=== PATIENT | female | born 1985 | race Caucasian/White ===

== ENCOUNTER 2021-12-19 21:05 | Emergency (ER) | payer OTHER ==
[~2021-12-19 21:05] MED LIST: MEDROL 4MG DOSEP4 MG PO; VENTOLIN HFA IN18 GM INH
[2021-12-20 00:18] LABS: BILIRUBIN NEGATIVE (NEGATIVE); BLOOD 3+ Ery/uL (NEGATIVE); CLARITY CLEAR (CLEAR); COLOR YELLOW (YELLOW); GLUCOSE (U) NORMAL (NORMAL); LEUKOCYTES NEGATIVE Leu/uL (NEGATIVE); NITRITE POSITIVE (NEGATIVE); PROTEIN NEGATIVE (NEGATIVE); SPECIFIC GRAVITY >=1.030 (1.001-1.030); UROBILINOGEN 0.2 mg/dL (0.2-1.0)
[2021-12-20 00:26] LABS: BACTERIA 4+
[2021-12-20 01:22] LABS: BUN/CREAT RATIO (CALC) 15.6 RATIO; CREATININE 0.9 mg/dL (0.51-0.95)
[2021-12-20 01:25] LABS: BASOPHIL 0.3 % (0-2); EOSINOPHIL 2.1 % (0-5); HCT 41.9 % (37.0-47.0); LYMPHOCYTE 35.3 % (15-48); MCH 32.1 pg (25.0-31.0); MCHC 33.4 g/dL (32.0-36.0); MCV 96.1 fL (78.0-100.0); MONOCYTE 7.2 % (0-12); MPV 8.7 fL (6.0-9.5); NEUTROPHIL 54.8 % (41-80); NRBC 0; PLT 346 K/uL (150-400); RBC 4.36 M/uL (4.20-5.40); WBC 6.7 K/uL (4.0-10.5)
[2021-12-20] MEDS ORDERED: KEFLEX250 MG PO (01:58)
== END 2021-12-20 02:25 | disposition home or self-care (01) ==
LOC: FER 21:05
PROVIDERS: Emergency Medicine
DX: N39.0 Urinary tract infection, site not specified (principal); I10 Essential (primary) hypertension; E10.9 Type 1 diabetes mellitus without complications; F17.200 Nicotine dependence, unspecified, uncomplicated; Z79.84 Long term (current) use of oral hypoglycemic drugs
CPT/HCPCS: 36415; 80048; 81001; 85025; 87076; 87088; 87186; 99284; J1885